=== PATIENT | male | born 1960 | race Caucasian/White ===

== ENCOUNTER → 2021-12-26 | Day surgery (SDC) | payer OTHER ==
[~2021-12-26] VITALS: Ht 165.1 cm; Wt 133.0 kg
[~2021-12-26] MED LIST: IV RINGERS,LACTATED 1000ML 1,000 ML IV SCH; PROPOFOL 10 MG/ML (20ML) VIAL. IV ONE
[2021-12-26 08:33] VITALS: BP 143/82
--- NOTE | 2021-12-26 09:10 | PDOC2 ---
CONSULT Date of Consult Date of Consult DATE: 12/26/21 TIME: 09:06 Reason for Consult Reason for Consult: Hx colon polyps History of Present Illness Reason for Visit: 61 year old male is seen with above. He has daily bowel movements without diarrhea or constipation. Weight and appetite are stable. No melena and/or hematochezia is present. Prior colonosopcy at age 51 did reveal polyps. Family history is negative for colon cancer.He otherwise is without additional complaints. Past Medical History Cardiovascular: HTN Musculoskeletal: Osteoarthritis Past Surgical History Past Surgical History: Other (vasectomy) Family History Family History: No Significant Social History No ALCOHOL: none Current Medications Current Medications Current Medications Ringer's Solution 1,000 ml @ 100 mls/hr Q10H IV Last administered on 12/26/21at 08:45; Start 12/26/21 at 08:45; Stop 12/27/21 at 08:44 Propofol (Diprivan) 200 mg STK-MED ONCE IV ; Start 12/26/21 at 09:03; Stop 12/26/21 at 09:04; Status DC Active Scripts Active Reported No Known Medications Prior To Admisstion (Info) Each 1 Each DAILY Allergies Allergies: Coded Allergies: No Known Drug Allergies (Unverified , 12/26/21) ROS Musculoskeletal: Yes Joint Pain Physical Exam General: Oriented X3, Cooperative Lungs: Clear to auscultation Heart: Normal S1, Normal S2 Abdomen: Normal bowel sounds, Soft, No tenderness Vitals VITALS Vital Signs Date Time Temp Pulse Resp B/P (MAP) Pulse Ox O2 Delivery O2 Flow Rate FiO2 12/26/21 08:33 97.3 70 22 97 97.3 Assessment/Plan Assessment/Plan Hx colon polyps- surveillance exam is recommended at this time. R/B have been discussed with patient who is wiling to proceed. AKIL RUTH MD December 26, 2021 09:10
[2021-12-26 09:41] VITALS: BP 163/87
== END | disposition home or self-care (01) ==
LOC: ENDOS 08:02
PROVIDERS: ATTEND Internal Medicine Gastroenterology
DX: Z12.11 Encounter for screening for malignant neoplasm of colon (principal); K64.0 First degree hemorrhoids; K63.89 Other specified diseases of intestine; I10 Essential (primary) hypertension; M19.90 Unspecified osteoarthritis, unspecified site; M10.9 Gout, unspecified; Z79.899 Other long term (current) drug therapy; Z98.890 Other specified postprocedural states; Z86.010 Personal history of colon polyps
CPT/HCPCS: 45378; J2704